=== PATIENT | female | born 1960 | race African-American/Black ===

== ENCOUNTER 2019-10-21 13:49 | Emergency (ER) | payer MEDICARE, MEDICAID ==
[~2019-10-21] VITALS: Ht 170.2 cm; Wt 136.1 kg
--- NOTE | 2019-10-21 14:10 | Emergency Room Report ---
History of Present Illness General Chief Complaint: Overdose Source: Patient, EMS Present Illness HPI Patient is a 59-year-old female presents after increased altered mental status. Patient had increased difficulty with breathing. As she had been given Narcan prior to arrival.Reportedly had a history of prior back pain. Has been taking morphine. Patient denies any fever or shortness of breath. Reports having prior history of asthma. Does not take oral steroids at this time. History is limited by initial mental status. Allergies: Coded Allergies: PENICILLINS (Verified Allergy, Unknown, 10/21/19) SULFA (SULFONAMIDE ANTIBIOTICS) (Verified Allergy, Unknown, 10/21/19) COVID-19 Screening Contact w/high risk pt: No Recent Travel to affected area: No Experienced COVID-19 symptoms?: No COVID-19 Testing performed EDI DEVELOPER: No Patient History Past Medical History: see triage record Last Menstrual Period: 20 years ago. Reviewed Nursing Documentation: PMH: Agreed; PSxH: Agreed Review of Systems All Other Systems: limited - Limited by poor historian. Physical Exam Vital Signs Date Time Temp Pulse Resp B/P (MAP) Pulse Ox O2 Delivery O2 Flow Rate FiO2 10/21/19 13:45 98.8 100 16 164/80 (108) 96 Room Air Sp02 EP Interpretation: reviewed, normal General Appearance: normal inspection, alert, obese, Chronically Ill Head: atraumatic ENT: normal ENT inspection, hearing grossly normal, normal voice Neck: normal inspection, full range of motion, supple, no bony tend Respiratory: no retraction, wheezing Cardiovascular #1: regular rate, rhythm, no edema Gastrointestinal: normal inspection, normal bowel sounds, non tender, soft, no guarding, no hernia Genitourinary: no CVA tenderness Musculoskeletal: normal inspection, back normal, normal range of motion Neurologic: alert, oriented x3, responsive, speech normal, normal inspection Psychiatric: normal inspection, judgement/insight normal, mood/affect normal Medical Decision Making Diagnostic Impression: Primary Impression: Drug overdose Additional Impression: Acute kidney injury ER Course Patient presented for increased lethargy and shortness of breath. Differential diagnosis include was not limited to coronavirus infection, pneumonia, CVA, sepsis, CO2 narcosis, renal failure among others. Because of complexity of patient's case laboratory tests and imaging studies were ordered. Patient was noted to have some initial altered mental status apparently responsive to Narcan. Patient was given breathing treatment as well as IV antibiotics after cultures were obtained. Patient's white blood count was noted to be normal with some lymphopenia. Chest x-ray 1 view read by radiology showed slight left- sided perihilar infiltrate with slight cardiomegaly. Patient was given additional dose of Narcan in the emergency department. She started on supplemental oxygen. She was given IV azithromycin. Patient was discussed with from [facility] case #[id number]. Patient be hospitalized for further evaluation and treatment of hypoxemia and acute renal dysfunction.Patient subsequently stated that she did not want to remain in the hospital despite risk benefits and alternatives been explained and having been told that she has kidney dysfunction compared to her baseline. Patient was advised to respond if his alternatives of leaving the hospital including risk of heart attack loss of current lifestyle and dialysis. Patient continues to want to leave the hospital. The time of AMA patient was awake alert and oriented. Does not appear to be psychotic and appears to be back to baseline mental status. All questions were answered. Patient was advised she could return at any time if she changes her mind.Patient was picked up by her family member. Labs Test 10/21/19 14:25 10/21/19 14:50 White Blood Count 10.0 K/UL (4.8-10.8) Red Blood Count 3.97 M/UL (4.20-5.40) Hemoglobin 11.6 G/DL (12.0-16.0) Hematocrit 36.8 % (37.0-47.0) Mean Corpuscular Volume 93 FL (80-99) Mean Corpuscular Hemoglobin 29.3 PG (27.0-31.0) Mean Corpuscular Hemoglobin Concent 31.6 G/DL (32.0-36.0) Red Cell Distribution Width 11.8 % (11.6-14.8) Platelet Count 185 K/UL (150-450) Mean Platelet Volume 6.6 FL (6.5-10.1) Neutrophils (%) (Auto) 78.9 % (45.0-75.0) Lymphocytes (%) (Auto) 14.0 % (20.0-45.0) Monocytes (%) (Auto) 5.8 % (1.0-10.0) Eosinophils (%) (Auto) 0.4 % (0.0-3.0) Basophils (%) (Auto) 0.8 % (0.0-2.0) D-Dimer 0.41 mg/L FEU (0.00-0.49) Sodium Level 138 MMOL/L (136-145) Potassium Level 4.6 MMOL/L (3.5-5.1) Chloride Level 105 MMOL/L (98-107) Carbon Dioxide Level 24 MMOL/L (21-32) Anion Gap 9 mmol/L (5-15) Blood Urea Nitrogen 30 mg/dL (7-18) Creatinine 3.2 MG/DL (0.55-1.30) Estimat Glomerular Filtration Rate 14.8 mL/min (>60) Glucose Level 130 MG/DL (74-106) Lactic Acid Level 0.80 mmol/L (0.4-2.0) Calcium Level 8.2 MG/DL (8.5-10.1) Phosphorus Level 6.9 MG/DL (2.5-4.9) Magnesium Level 1.9 MG/DL (1.8-2.4) Total Bilirubin 0.2 MG/DL (0.2-1.0) Aspartate Amino Transf (AST/SGOT) 18 U/L (15-37) Alanine Aminotransferase (ALT/SGPT) 22 U/L (12-78) Alkaline Phosphatase 64 U/L (46-116) Total Creatine Kinase 428 U/L (26-308) Creatine Kinase MB 3.2 NG/ML (0.0-3.6) Creatine Kinase MB Relative Index 0.7 Troponin I 0.015 ng/mL (0.000-0.056) Total Protein 7.6 G/DL (6.4-8.2) Albumin 3.5 G/DL (3.4-5.0) Globulin 4.1 g/dL Albumin/Globulin Ratio 0.9 (1.0-2.7) Urine Color Yellow Urine Appearance Cloudy Urine pH 5 (4.5-8.0) Urine Specific Carney 1.020 (1.005-1.035) Urine Protein 1+ (NEGATIVE) Urine Glucose (UA) Negative (NEGATIVE) Urine Ketones 1+ (NEGATIVE) Urine Blood Negative (NEGATIVE) Urine Nitrite Negative (NEGATIVE) Urine Bilirubin Negative (NEGATIVE) Urine Urobilinogen 1 MG/DL (0.0-1.0) Urine Leukocyte Esterase Negative (NEGATIVE) Urine RBC 0 /HPF (0 - 2) Urine WBC 0 /HPF (0 - 2) Urine Squamous Epithelial Cells Occasional /LPF Urine Bacteria Many /HPF (NONE) Urine Opiates Screen Positive (NEGATIVE) Urine Barbiturates Screen Negative (NEGATIVE) Phencyclidine (PCP) Screen Negative (NEGATIVE) Urine Amphetamines Screen Negative (NEGATIVE) Urine Benzodiazepines Screen Negative (NEGATIVE) Urine Cocaine Screen Negative (NEGATIVE) Urine Marijuana (THC) Screen Negative (NEGATIVE) EKG Diagnostic Results Rate: normal Rhythm: NSR ST Segments: no acute changes Last Vital Signs Date Time Temp Pulse Resp B/P (MAP) Pulse Ox O2 Delivery O2 Flow Rate FiO2 10/21/19 13:45 98.8 100 16 164/80 (108) 96 Room Air Status: unchanged Disposition: AGAINST MEDICAL ADVICE Condition: Serious Scripts Unable to Obtain Active Prescriptions or Reported Meds Jose Morin MD October 21, 2019 14:10
--- NOTE | 2019-10-21 14:15 | NUR ---
ED Nurse Note: Pt BIBA from home. Per ambulance, pt overdosed on unknown narcotic for back pain. Pt is alert but weak, SOB. Pt bilateral arm strength 5/5, no facial droop, bilateral hand squeeze strong. Pt is awake, responsive, but unable to answer most questions due to difficulty breathing. Pt has bilateral exp wheezing in lungs. She is on 12L non rebreather at 95%. She is set up on monitor.
--- NOTE | 2019-10-21 14:19 | NUR ---
ED Nurse Note: Pt blood sent to lab.
--- NOTE | 2019-10-21 14:20 | NUR ---
ED Nurse Note: Pt taken to CT.
[2019-10-21 14:35] LABS: BASOPHILS % (AUTO) 0.8 % (0.0-2.0); EOSINOPHILS % (AUTO) 0.4 % (0.0-3.0); HEMATOCRIT 36.8 % (37.0-47.0); HEMOGLOBIN 11.6 G/DL (12.0-16.0); MEAN CORPUSCULAR VOLUME 93 FL (80-99); MONOCYTES % (AUTO) 5.8 % (1.0-10.0); NEUTROPHILS % (AUTO) 78.9 % (45.0-75.0); PLATELET COUNT 185 K/UL (150-450); RED BLOOD COUNT 3.97 M/UL (4.20-5.40); RED CELL DISTRIBUTION WIDTH 11.8 % (11.6-14.8)
[2019-10-21 14:36] VITALS: BP 140/69
[2019-10-21 14:44] LABS: ANION GAP 9 mmol/L (5-15); BLOOD UREA NITROGEN 30 mg/dL (7-18); CALCIUM 8.2 MG/DL (8.5-10.1); CARBON DIOXIDE 24 MMOL/L (21-32); CHLORIDE 105 MMOL/L (98-107); CREATININE 3.2 MG/DL (0.55-1.30); POTASSIUM 4.6 MMOL/L (3.5-5.1); SODIUM 138 MMOL/L (136-145)
[2019-10-21] MEDS ORDERED: Albuterol/Ipratropium 3ml neb HHN ONE (14:45)
--- NOTE | 2019-10-21 14:45 | Diagnostic Imaging Report ---
EXAM: CT Head Without Intravenous Contrast CLINICAL HISTORY: Headache. Shortness of breath. TECHNIQUE: Axial computed tomography images of the head/brain without intravenous contrast. CTDI is 53.4 mGy and DLP is 1041.7 mGy-cm. One or more of the following dose reduction techniques were used: automated exposure control, adjustment of the mA and/or kV according to patient size, use of iterative reconstruction technique. COMPARISON: None. FINDINGS: Brain: Minimal small vessel disease of aging. No abnormal extra-axial collection. No hemorrhage. Midline shift: No midline shift or mass-effect. Ventricles: The ventricular system is age appropriate. Bones/joints: Hyperostosis frontalis. No acute fracture. Soft tissues: Unremarkable. Sinuses: Moderate chronic right sphenoid sinusitis. Mild chronic left sphenoid sinusitis. Mild chronic ethmoid sinusitis. Mastoid air cells: Mastoid air cells are well pneumatized. IMPRESSION: 1. No acute intracranial pathology is detected. 2. If there is concern for etiology such as early acute lacunar infarcts, magnetic resonance imaging of the brain with diffusion-weighted sequences should be performed for follow-up.
--- NOTE | 2019-10-21 14:47 | Diagnostic Imaging Report ---
EXAM: XR Chest, 1 View CLINICAL HISTORY: Short of breath. TECHNIQUE: Frontal view of the chest. COMPARISON: None. FINDINGS: Lungs: Mild prominence of the hilar regions bilaterally. Possible left perihilar infiltrate. Pleural space: Unremarkable. No pneumothorax. Heart: Mild cardiomegaly. Mediastinum: Unremarkable. Bones/joints: Unremarkable. Upper abdomen: Elevation of the right hemidiaphragm. Other findings: There is mild hypoaeration. IMPRESSION: 1. Hypoaeration. 2. Mild cardiomegaly. 3. Possible left perihilar infiltrate. 4. CT imaging of the chest is suggested for follow-up, as deemed clinically necessary.
--- NOTE | 2019-10-21 14:49 | NUR ---
ED Nurse Note: Urine sent.
[2019-10-21 14:57] LABS: ALANINE AMINOTRANSFERASE 22 U/L (12-78); ALBUMIN 3.5 G/DL (3.4-5.0); ALBUMIN/GLOBULIN RATIO 0.9 (1.0-2.7); ALKALINE PHOSPHATASE 64 U/L (46-116); ASPARTATE AMINO TRANSFERASE 18 U/L (15-37); BILIRUBIN,TOTAL 0.2 MG/DL (0.2-1.0); CKMB 3.2 NG/ML (0.0-3.6); CREATINE KINASE 428 U/L (26-308); PHOSPHORUS 6.9 MG/DL (2.5-4.9)
[2019-10-21 15:00] LABS: APPEARANCE,URINE CLOUDY; BILIRUBIN, URINE NEGATIVE (NEGATIVE); GLUCOSE, URINE (UA) NEGATIVE (NEGATIVE); KETONES,URINE 1+ (NEGATIVE); LEUKOCYTE ESTERASE ,URINE NEGATIVE (NEGATIVE); NITRITE,URINE NEGATIVE (NEGATIVE); PH,URINE 5 (4.5-8.0); PROTEIN,URINE 1+ (NEGATIVE); UROBILINOGEN,URINE 1 MG/DL (0.0-1.0)
[2019-10-21] MEDS ORDERED: Azithromycin 500 MG in D5W 275 ML IVPB ONE (15:00)
[2019-10-21 15:02] LABS: COLOR,URINE YELLOW
--- NOTE | 2019-10-21 15:30 | NUR ---
ED Nurse Note: COVID swab sent.
[2019-10-21] MEDS ORDERED: Naloxone 1mg/ml 2ml IVP ONE (16:00)
--- NOTE | 2019-10-21 16:06 | NUR ---
ED Nurse Note: Daughter Eliana [phone]
[2019-10-21 16:44] VITALS: BP 133/65
--- NOTE | 2019-10-21 16:47 | NUR ---
ED Nurse Note: Pt is alert and orientedx4, ambulatory. While RT was in room, patient started taking IV out and stating she wants to leave and doesn't need to be here anymore. Dr Morin and RN are called into patients room, and although advised against it, starting pulling otu IV and unhooking herself from monitor. Pt states she "doesn't need to be here anymore and should be at home." Pt explaind risks by doctor. AMA form completed. VSS. Pts daughter is called for ride home. Cn and outside plant supervisor notified.
--- NOTE | 2019-10-21 16:50 | NUR ---
ED Nurse Note: IV pulled out by patient. No complications.
== END 2019-10-21 17:02 | disposition left against medical advice (07) ==
LOC: EDBD 13:49 → EMR 14:28
DX: T50.901A Poisoning by unspecified drugs, medicaments and biological substances, accidental (unintentional), initial encounter (principal); Y92.9 Unspecified place or not applicable; N17.9 Acute kidney failure, unspecified; Z88.2 Allergy status to sulfonamides; Z88.0 Allergy status to penicillin; E66.9 Obesity, unspecified; D72.810 Lymphocytopenia; I51.7 Cardiomegaly; R09.02 Hypoxemia
CPT/HCPCS: 36415; 70450; 71045; 80053; 80307; 81003; 82550; 82553; 83605; 83735; 84100; 84484; 85025; 85379; 87040; 87086; 87181; 93005; 96365; 96375; 99284; J0456; J2310; U0002; 87635; J7620